=== PATIENT | female | born 1950 | race Caucasian/White ===

== ENCOUNTER 2021-06-16 12:10 | Emergency (ER) | payer MEDICARE, OTHER ==
[2021-06-16 13:46] LABS: HEMOGLOBIN 12.2 gm/dl (12.3-15.3); RED BLOOD COUNT 4.81 M/UL (4.00-5.10); WHITE BLOOD COUNT 5.8 K/UL (4.5-11.0)
[2021-06-16 14:10] LABS: BUN/CREATININE RATIO 15 (0-10)
[2021-06-16] MEDS ORDERED: ONDANSETRON ODT4 MG SL (16:31)
== END 2021-06-16 19:00 | disposition home or self-care (01) ==
LOC: ER1 12:10
PROVIDERS: Physician Assistant
DX: I10 Essential (primary) hypertension (principal); J44.9 Chronic obstructive pulmonary disease, unspecified; F17.200 Nicotine dependence, unspecified, uncomplicated; Z86.73 Personal history of transient ischemic attack (TIA), and cerebral infarction without residual deficits; Z88.5 Allergy status to narcotic agent; Z79.899 Other long term (current) drug therapy
CPT/HCPCS: 70450; 71045; 80053; 82550; 82553; 83690; 83874; 84484; 85025; 93005; 99284